=== PATIENT | female | born 1965 | race Two or more races ===

== ENCOUNTER 2022-06-27 11:09 | Emergency (ER) | payer OTHER ==
[~2022-06-27] VITALS: Ht 167.6 cm; Wt 86.2 kg
[2022-06-27] MEDS ORDERED: LOSARTAN POTASS25 MG PO (11:48)
[2022-06-27] MEDS ORDERED: PYRIDIUM100 MG PO (17:08)
== END 2022-06-27 17:19 | disposition home or self-care (01) ==
LOC: ER 11:09
DX: E11.65 Type 2 diabetes mellitus with hyperglycemia (principal); N30.90 Cystitis, unspecified without hematuria